=== PATIENT | female | born 1985 | race Caucasian/White ===

== ENCOUNTER 2019-01-25 10:06 | Day surgery (SDC) | payer OTHER ==
[2019-01-22 16:21] VITALS: BMI 30.2
[~2019-01-25 10:06] MED LIST: Dexamethasone 20 MG/5 ML VIAL ONE; Glycopyrrolate 0.2 MG/ML 5 ML SYRINGE ONE; Ondansetron PF 4 MG/2 ML Vial ONE; PHENYLEPHRINE-NS 100 MCG/ML 10 ML SYRINGE ONE; PROPOFOL 200 MG/20 ML VIAL ONE; Rocuronium Bromide 10 MG/ML (10ML VIAL) ONE
[2019-01-25] MEDS ORDERED: Famotidine/PF 20 mg/2ml Vial ONE (10:38)
[2019-01-25] MEDS ORDERED: Gabapentin 300 MG CAP ONE (10:38)
[2019-01-25] MEDS ORDERED: CeleCOXIB 100 MG CAP ONE (10:38)
[2019-01-25] MEDS ORDERED: Bupivacaine/Epinephrine 0.5% 10 ML VIAL ONE (12:36)
[2019-01-25] MEDS ORDERED: Fentanyl 100 MCG/2 ML VIAL ONE ×3 (13:00→15:44)
[2019-01-25] MEDS ORDERED: Acetaminophen 325 MG TAB PO PRN (13:19)
[2019-01-25] MEDS ORDERED: diphenhydrAMINE 25 MG CAP PO PRN (13:19)
[2019-01-25] MEDS ORDERED: Promethazine HCl 25 MG/ML VIAL IM PRN (13:19)
[2019-01-25] MEDS ORDERED: Zolpidem Tartrate 5 MG TAB PO PRN (13:19)
[2019-01-25] MEDS ORDERED: Simethicone Chewable 80 MG TAB PO PRN (13:19)
[2019-01-25] MEDS ORDERED: Bisacodyl 10 MG SUPP PR PRN (13:19)
[2019-01-25] MEDS ORDERED: Ondansetron PF 4 MG/2 ML Vial IVP PRN (13:19)
[2019-01-25] MEDS ORDERED: HYDROcodone/Acetaminophen 5/325 mg Tablet PO PRN (13:19)
[2019-01-25] MEDS ORDERED: Fentanyl 100 MCG/2 ML VIAL SLOW IVP PRN (13:19)
[2019-01-25] MEDS: Lactated Ringer's 1,000 ML IV SCH (13:30)
[2019-01-25] MEDS: Ketorolac Tromethamine 30 MG/ML VIAL IVP SCH (17:23)
[2019-01-25] MEDS: HYDROcodone/Acetaminophen 5/325 mg Tablet PO PRN (21:17)
[2019-01-25] MEDS: Docusate Calcium (SURFAK) 240 MG CAP PO SCH (21:17)
--- NOTE | 2019-01-25 21:28 | OP ---
DATE OF PROCEDURE: 01/25/2019 PREOPERATIVE DIAGNOSES: 1. Pelvic pain. 2. Cervical dysplasia. POSTOPERATIVE DIAGNOSES: 1. Pelvic pain. 2. Cervical dysplasia. PROCEDURE: Robotic assisted total laparoscopic hysterectomy, right salpingectomy. ANESTHESIA: General endotracheal attending. [place]ARD[place] SURGEON: ISMAEL Kc ESTIMATED BLOOD LOSS: 50 mL. IVF: 1200 mL crystalloid. URINE OUTPUT: 300 mL clear urine. PATHOLOGY: Uterus, cervix, right fallopian tube. COMPLICATIONS: None. DRAINS: Kohli catheter. FINDINGS: Uterus sounded to 10 cm, was globally enlarged. There was a normal appearing right ovary and fallopian tube with the right ovary had a corpus luteum. The left ovary and fallopian tube were surgically absent. During the case, the ureters were visualized bilaterally vermiculating and excellent hemostasis was noted at the end of the case. There was no bladder injury upon back filling of the bladder. OPERATIVE TECHNIQUE: The patient was taken to the operating room, where general anesthesia was obtained without difficulty. The patient was prepped and draped in a sterile fashion in the dorsal lithotomy position. A Kohli catheter was placed in the bladder. A speculum was placed in the vagina. The anterior lip of the cervix was grasped with a single-tooth tenaculum. The uterus then sounded to 10 cm and was progressively dilated with Chris dilators. The VINCE manipulator was assembled with a 10 cm tip and a 4 cm colpotomizer ring. The manipulator tip was inserted into the uterine fundus. The balloon was inflated. Instruments removed out of the vagina and colpotomizer ring was advanced, fit snugly around the cervix and Occluder balloon was inflated. Legs were placed in low lithotomy. Attention was turned to the abdomen. A 12 mm skin incision was made in the umbilicus and the Veress needle was passed into the abdomen noting an opening pressure of 3 mmHg and pneumoperitoneum was obtained without difficulty. The Veress needle was removed and a 12 mm trocar was passed into the abdomen and confirmed placement with robotic camera. Steep Trendelenburg was obtained. A right and left lower quadrant 8 mm robotic trocars were placed under direct visualization after infiltrating with 0.5% Marcaine with epinephrine. A right upper quadrant visitor services assistant 11 mm port was placed under direct visualization after infiltrating with anesthetic and making a skin incision. The robot was then docked. The right robotic arm contained monopolar scissors. Left robotic arm contained a fenestrated bipolar. The surgeon console then took control. The right fallopian tube was grasped and elevated at the fimbria and the mesosalpinx was sequentially clamped, cauterized, and transected. There was a Filshie clip from the patient's previous tube that was also removed along with the fallopian tube. The fallopian tube was then transected across at the uterine cornua and the fallopian tube was removed out of the abdomen. The utero-ovarian on the right was cauterized with the fenestrator and incised with the scissors and the round ligament was cauterized in the midportion and incised with the scissors. The posterior leaf of the broad ligament was incised down to the level of the uterosacral. The ureter was noted in the sidewall and the posterior leaf was dropped down adequately to visualize the ureter in the pelvic sidewall and hemostasis was achieved with short bursts of energy to cauterize with the scissors. The anterior leaf of the broad ligament was incised down to the level of the bladder flap and the vessels were skeletonized on the right side. The bladder flap was then incised over the pubocervical fascia and the adventitial fibers were dissected down using the scissors as well as blunt dissection with the back end of the scissors. The attention was turned to the left side where the ovary and fallopian tube were surgically absent. The round ligament was cauterized in the midportion with the fenestrator and incised with the scissors. The posterior leaf of the broad ligament was incised down to the level of the uterosacral and the ureter was noted in the pelvic sidewall and the posterior leaf was bluntly dissected off the anterior leaf in order to visualize the ureter in the retroperitoneum. The anterior leaf of the broad ligament was incised down to the level of the incision from the contralateral side. The vessels were skeletonized on the left side with the scissors. The bladder flap was further developed by scoring on the pubis cervical fascia and dissecting the adventitia down below the level of the colpotomizer ring. Hemostasis was achieved with the with the scissors of the bladder pillars. The vessels were cauterized bilaterally. Colpotomy was performed at the right uterine pedicle after the pedicle had been incised to drop away laterally. The cardinal ligament was incised and the blue colpotomizer ring was identified. The colpotomy was carried all the way around circumferentially incising with the scissors until it had been completed, and the uterus was placed back into the vagina. The cuff was irrigated. The scissors were traded out for the needle van driver and hemostasis was achieved of the cuff with the fenestrator. The vaginal cuff was closed with a 2-0 barbed STRATAFIX suture in a running fashion incorporating vaginal mucosa and posterior peritoneum in each bite. Once a single-layer closure had been performed, it was run back for several sutures and then the uterosacrals were grabbed and the stitch was thrown through each uterosacral and then through the rectovaginal peritoneum performing a Spears's culdoplasty. The needle was then cut and removed out of the abdomen. The pelvis was copiously irrigated and suctioned. Hemostasis was noted to be excellent. The bladder was backfilled, and no bladder injury was observed. Bertha powder was placed over the vaginal cuff and pedicles and all instruments removed out of the abdomen. The robot was undocked. Pneumoperitoneum was released. The fascia of the camera port was closed with a 0 Vicryl in a [id number] fashion. The skin was closed with 4-0 Monocryl in a subcuticular fashion. Dermabond was applied. The vaginal cuff was checked vaginally and noted to be hemostatic with excellent closure. All instruments removed out of the vagina. The patient tolerated the procedure well. Sponge, lap, needle counts correct x2. The patient was taken to recovery room in stable condition. Job ID: [id number]
[2019-01-26] MEDS: Ketorolac Tromethamine 30 MG/ML VIAL IVP SCH (00:42)
[2019-01-26] MEDS: Lactated Ringer's 1,000 ML IV SCH (02:50)
[2019-01-26] MEDS: HYDROcodone/Acetaminophen 5/325 mg Tablet PO PRN (04:37)
[2019-01-26 05:14] LABS: Hemoglobin 12.7 g/dL (12.0-16.0); Mean Corpuscular HGB CONC 34.5 g/dL (32.0-36.0); Mean Corpuscular Hemoglobin 33.1 pg (27.0-31.0); Mean Corpuscular Volume 95.9 fL (78.0-98.0); Mean Platelet Volume 9.1 fL (7.4-10.4); Platelet Count 204 thou/uL (130-400); RBC Distribution Width 11.6 % (11.5-14.5); Red Blood Cell (RBC) Count 3.82 mill/uL (4.20-5.40); White Blood Cell (WBC) Count 14.3 thou/uL (4.8-10.8)
[2019-01-26] MEDS ORDERED: Ibuprofen 800 MG TAB PO SCH (06:00)
[2019-01-26 08:15] VITALS: BP 104/62; TEMP 97.7
[2019-01-26] MEDS: Docusate Calcium (SURFAK) 240 MG CAP PO SCH (08:23)
--- NOTE | 2019-01-26 08:44 | PDOC.EVN ---
Event Note - Event Note Event Note: POD1 S: No complaints, pain controlled. Delores diet, ambulating and voiding without difficulty. O: VSSAF NAD unlabored breathing soft/ND/appttp/inc c/d/i No e/c/c Hgb 12.7 A) POD1 s/p RATLH unilateral salpingectomy VSSAF Hgb wnl postop met all milestones Path pending DC home FU 2 wk, restrictions given.
[2019-01-31] MEDS ORDERED: Ibuprofen 800 MG TAB PO SCH (06:00)
== END 2019-01-26 10:00 | disposition home or self-care (01) ==
LOC: SDC 10:06 → 3SE 17:17 → UNDOADMIN 17:17 → UNDODISIN 01-26 10:00 → SDC 01-26 10:00
PROVIDERS: ATTEND Student in an Organized Health Care Education/Training Program
DX: N87.9 Dysplasia of cervix uteri, unspecified (principal); N80.0 Endometriosis of uterus; N72 Inflammatory disease of cervix uteri; F17.210 Nicotine dependence, cigarettes, uncomplicated; F32.9 Major depressive disorder, single episode, unspecified; F90.9 Attention-deficit hyperactivity disorder, unspecified type; Z79.899 Other long term (current) drug therapy; Z91.040 Latex allergy status
CPT/HCPCS: 36415; 85027; 86850; 86900; 86901; 88307; J0690; J1100; J1885; J2405; J2704; J3010; J3490; S0028

== ENCOUNTER 2019-01-30 20:25 | Observation (INO) | payer OTHER ==
[~2019-01-30 20:25] MED LIST changes: -Dexamethasone 20 MG/5 ML VIAL ONE; -Glycopyrrolate 0.2 MG/ML 5 ML SYRINGE ONE; +Iopamidol-370 76% 500 ML 1 ML ONE; -Ondansetron PF 4 MG/2 ML Vial ONE; -PHENYLEPHRINE-NS 100 MCG/ML 10 ML SYRINGE ONE; -PROPOFOL 200 MG/20 ML VIAL ONE; -Rocuronium Bromide 10 MG/ML (10ML VIAL) ONE
[2019-01-30] MEDS ORDERED: cefTRIAXone\\ROCEPHIN 2 GM VIAL ONE (20:53)
[2019-01-30] MEDS ORDERED: Morphine 4 MG/ML VIAL ONE (20:53)
[2019-01-30 21:18] LABS: Hemoglobin 12.9 g/dL (12.0-16.0); Mean Corpuscular HGB CONC 34.3 g/dL (32.0-36.0); Mean Corpuscular Hemoglobin 33.4 pg (27.0-31.0); Mean Corpuscular Volume 97.3 fL (78.0-98.0); RBC Distribution Width 11.5 % (11.5-14.5); Red Blood Cell (RBC) Count 3.88 mill/uL (4.20-5.40)
[2019-01-30] MEDS ORDERED: Piperacillin/Tazobactam 4.5 GM VIAL ONE (21:19)
[2019-01-30 21:24] LABS: Band 6 % (5-11); Eosinophils 4 % (0-10); Lymphocytes 12 % (21-51); MDiff Complete? YES; Mean Platelet Volume 9.7 fL (7.4-10.4); Monocytes 7 % (0-10); Neutrophil 71 % (42-75); Platelet Count 233 thou/uL (130-400)
[2019-01-30 21:25] LABS: ALT (SGPT) 29 U/L (8-55); AST (SGOT) 24 U/L (5-34); Albumin 3.9 g/dL (3.5-5.0); Alkaline Phosphatase 82 U/L (40-110); Anion Gap 12 mmol/L (10-20); BUN (Urea Nitrogen) 7 mg/dL (7.0-18.7); Bilirubin, Total 0.4 mg/dL (0.2-1.2); Calc. Creatinine Clearance 0 mL/min (70-130); Calcium 9.2 mg/dL (7.8-10.44); Carbon Dioxide 26 mmol/L (22-29); Chloride 101 mmol/L (98-107); Estimated GFR-MDRD Greater than 90; Globulin 3.3 g/dL (2.4-3.5); Glucose 93 mg/dL (70-105); Lipase Less than 4 U/L (8-78); Magnesium 1.8 mg/dL (1.6-2.6); Potassium 4.2 mmol/L (3.5-5.1); Protein, Total 7.2 g/dL (6.0-8.3); Sodium 135 mmol/L (136-145)
--- NOTE | 2019-01-30 21:32 | RAD ---
XR Chest 1 View Portable History: Sepsis. Fever. Comparison: None. Findings: Lungs are clear. No pneumothorax. No effusion. No acute osseous abnormality. Impression: No acute intrathoracic abnormality.
--- NOTE | 2019-01-30 21:45 | CT ---
CT Abdomen Pelvis W Con History: Abdominal pain Comparison: None. Findings: Mild atelectasis in the lung bases. No pericardial effusion. Evidence of recent hysterectomy with postoperative changes in the hysterectomy bed. Small volume free intraperitoneal gas. Fat-containing periumbilical hernia as well as a fat-containing umbilical hernia. No definite drainable fluid collection is appreciated. No significant hematoma. No dilated loops of large or small bowel. Appendix measures 6 mm without periappendiceal inflammation . The spleen, pancreas, liver, gallbladder are unremarkable. No dilated loops of large or small bowel. No retroperitoneal periaortic adenopathy. There is a lumbosacral transitional vertebra. No acute osse ous abnormality. No hydronephrosis. Impression: 1. Expected postoperative findings without complication. 2. Small small fat-containing umbilical and periumbilical hernias.
[2019-01-30 22:14] LABS: Bilirubin Negative (Negative); Blood, Urine Negative (Negative); Clarity Clear (Clear); Glucose, Urine (Dipstick) Normal (Negative); Leukocyte Negative Leu/uL (Negative); Nitrite Negative (Negative); Protein, Urine (Dipstick) Negative (Neg-Trace); Urobilinogen Normal mg/dL (Less than 2)
[2019-01-30] MEDS ORDERED: HYDROmorphone 0.5 MG/0.5 ML SYRINGE ONE (22:33)
--- NOTE | 2019-01-31 00:10 | PDOC.HHP ---
Hospitalist HPI - History of Present Illness post-op fever & abdominal pain History of Present Illness: 33YO who presented to the ED per the recs of her PCP due to fever up to 101F at home w/ associated diarrhea and abdominal pain. Patient is post-op day # 5 s/p a robotic TIARA and R salpingectomy who reports having progressively worsening B/L lower abdominal pain since Friday. Reports that the pain is intermittent & crampy in nature lasting only a few seconds at a time but has been occurring more frequently for the last 3-4 days. States the pain is ~8/10 when it occurs. Reports some associated fever/chills that began earlier today around ~ 13:00 and recorded a temp of 101F at home around 15:30. Has also had some associated nausea and diarrhea but no vomiting. Reports 3 episodes of liquid, foul-smelling stool with every BM. Reported severe pain in her bottom with last BM that was different from her abdominal pain. Denies any melena, hematochezia, dysuria, hematuria, incision sight redness or drainage or vaginal d/c or pain. Does reports some light vaginal spotting earlier today but no continued bleeding. Also reports vaginal itching. Has a h/o chronic pelvic pain which is why she had the surgery and reports that this pain is different from that. ED Course: s/p IV zosyn, dilaudid and morphine Hospitalist ROS - Review of Systems Constitutional: reports: fever, chills, malaise Eyes: denies: pain, vision change ENT: denies: ear pain, nose congestion, throat pain Respiratory: reports: pleuritic pain. denies: cough, shortness of breath, hemoptysis Cardiovascular: denies: chest pain, palpitations Gastrointestinal: reports: nausea, abdominal pain, diarrhea. denies: vomiting, constipation, melena, hematochezia Genitourinary: reports: other (vaginal itching but no d/c; minimal spotting). 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 Gastrointestinal: reports: no pertinent history Heme/Onc: reports: no pertinent history Hepatobiliary: reports: no pertinent history Psych: reports: Anxiety, Bipolar Musculoskeletal: reports: no pertinent history Rheumatologic: reports: no pertinent history Infectious Disease: reports: no pertinent history ENT: reports: no pertinent history Renal/: reports: no pertinent history Endocrine: reports: no pertinent history Dermatology: reports: no pertinent history - Past Surgical History Past Surgical History: reports: Hysterectomy (w/ L salpingectomy), Tubal Ligation, Other (left oophrectomy & cystectomy, LEEP) - Family History Family History: reports: diabetes mellitus, hypertension - Social History Smoking Status: Current every day smoker Alcohol: reports: Occassional Drugs: reports: none Living Situation: With Family Activity level: independent ambulation - Exam General Appearance: awake alert General - other findings: in moderate distress 2/2 pain Eye: anicteric sclera ENT: normocephalic atraumatic, moist mucosa Neck: supple Heart: RRR, no murmur Respiratory: CTAB, no wheezes, no rales, no ronchi, normal chest expansion Gastrointestinal: soft, non-distended, normal bowel sounds, no guarding, no rigidity, tender to palpation (all along lower abdomen, RLQ>LLQ) Gastrointestinal - other findings: exam: speculum exam unremarkable w/ no abnormal d/c dehiscence Skin: normal turgor, no lesions Skin - other findings: diffuse erythema/irritation all across perineum Neurological: cranial nerve grossly intact, no focal deficits Psychiatric: normal affect, A&O x 3 Hospitalist Results - Labs Result Diagrams: 01/30/19 20:53 01/30/19 20:53 Lab results: WBC 15.0 thou/uL (4.8-10.8) H 01/30/19 20:53 Hgb 12.9 g/dL (12.0-16.0) 01/30/19 20:53 Hct 37.7 % (36.0-47.0) 01/30/19 20:53 MCV 97.3 fL (78.0-98.0) 01/30/19 20:53 Plt Count 233 thou/uL (130-400) 01/30/19 20:53 Band Neuts % (Manual) 6 % (5-11) 01/30/19 20:53 Sodium 135 mmol/L (136-145) L 01/30/19 20:53 Potassium 4.2 mmol/L (3.5-5.1) 01/30/19 20:53 Chloride 101 mmol/L (98-107) 01/30/19 20:53 Carbon Dioxide 26 mmol/L (22-29) 01/30/19 20:53 BUN 7 mg/dL (7.0-18.7) 01/30/19 20:53 Creatinine 0.71 mg/dL (0.6-1.1) 01/30/19 20:53 Glucose 93 mg/dL (70-105) 01/30/19 20:53 Lactic Acid 0.9 mmol/L (0.5-2.2) 01/30/19 20:53 Calcium 9.2 mg/dL (7.8-10.44) 01/30/19 20:53 Total Bilirubin 0.4 mg/dL (0.2-1.2) 01/30/19 20:53 AST 24 U/L (5-34) 01/30/19 20:53 ALT 29 U/L (8-55) 01/30/19 20:53 Alkaline Phosphatase 82 U/L (40-110) 01/30/19 20:53 Serum Total Protein 7.2 g/dL (6.0-8.3) 01/30/19 20:53 Albumin 3.9 g/dL (3.5-5.0) 01/30/19 20:53 Lipase Less than 4 U/L (8-78) L 01/30/19 20:53 Urine Ketones Negative mg/dL (Negative) 01/30/19 22:01 Urine Blood Negative (Negative) 01/30/19 22:01 Urine Nitrite Negative (Negative) 01/30/19 22:01 Ur Leukocyte Esterase Negative Irma/uL (Negative) 01/30/19 22:01 - Radiology Interpretation Chest x-ray Status: report reviewed by me Additional Comment: NAF CT scan - abdomen Status: image reviewed by me, report reviewed by me (expected post-op findings w /o complication; small fat-containing umbilical & john-umbilical hernias) Hospitalist H&P A/P - Problem (1) Abdominal pain Code(s): R10.9 - UNSPECIFIED ABDOMINAL PAIN Status: Acute Qualifiers: Abdominal location: lower abdomen, unspecified Qualified Code(s): R10.30 - Lower abdominal pain, unspecified (2) Postoperative fever Code(s): R50.82 - POSTPROCEDURAL FEVER Status: Acute (3) Diarrhea Code(s): R19.7 - DIARRHEA, UNSPECIFIED Status: Acute (4) Tobacco use Code(s): Z72.0 - TOBACCO USE Status: Chronic (5) Bipolar disorder Code(s): F31.9 - BIPOLAR DISORDER, UNSPECIFIED Status: Chronic - Plan Plan: 33YO who is post-op day #5 s/p robotic hysterectomy & R salpingectomy who presented to the ED for evaluation for progressively worsening lower abdominal pain w/ associated fever/chills, nausea, and diarrhea. Post-op abdominal pain & fever: - DDx includes post-operative abscess vs. infectious colitis/gastroenteritis vs. pelvic infection. CT done in ED did not comment on any drainable fluid collection c/w abscess formation but patient was in significant pain at time of exam. Could just be 2/2 infectious colitis or gastroenteritis as well though given her diarrhea. Will consider stool cultures if it persists as patient is at risk for infections like C/ diff given recent abx & hospitalization for recent surgery. Speculum exam was not remarkable for any s/s of pelvic infection making this highly unlikely. Did reveal perineal contact dermatitis however which will be addressed below. - WBC elevated at 15 but normal CMP, lipase, UA, & lactate. VS notable for tachycardia & tachypnea on presentation as well making her SIRS positive. Afebrile on presentation but was reportedly febrile up to 101F at home & reports having taken tylenol just prior to arrival. Blood & urine cultures pending. - s/p 4.5g IV zosyn in the ED. Will continue Q6H on the floor and continue PRN zofran & [place] & morphine for nausea & pain control. - Continue mIVFs w/ NS @ 100mL/hr. - Repeat CBC in the AM. Perineal contact dermatitis vs. intertrigo: - Due to the fact that the rash could possibly be fungal given only reported symptom is itching, will try topical nystatin powder & assess for improvement. Bipolar disorder: - Will continue home abilify. Anxiety: - Will continue PRN Xanax if needed. tobacco use: - Nicotine patch ordered. Will encourage cessation. Dispo: Will admit to [facility] WE[facility] floor for observation and continued IV abx pending clinical course. Addendum - Attending - Attending Attestation Date/Time: 01/31/192 I personally evaluated the patient and discussed the management with Dr. Dale. I agree with the History, Examination, Assessment and Plan documented above.
[2019-01-31] MEDS ORDERED: Acetaminophen 500 MG TAB ONE (00:46)
[2019-01-31] MEDS ORDERED: Aripiprazole 10 MG TAB PO SCH ×2 (01:00→21:00)
[2019-01-31] MEDS ORDERED: Morphine 2 MG/ML SYRINGE SLOW IVP PRN (01:39)
[2019-01-31] MEDS ORDERED: Ondansetron ODT 4 MG TAB PO PRN (01:39)
[2019-01-31] MEDS ORDERED: Calcium Carbonate 500 MG ChewTAB PO PRN (01:39)
[2019-01-31] MEDS ORDERED: Ondansetron PF 4 MG/2 ML Vial IVP PRN (01:39)
[2019-01-31] MEDS: Sodium Chloride 0.9% 1,000 ML IV SCH ×2 (02:06→13:53)
[2019-01-31] MEDS: Nicotine 14 MG PATCH TD SCH (02:07)
[2019-01-31] MEDS: HYDROcodone/Acetaminophen 5/325 mg Tablet PO PRN ×4 (02:16→19:45)
[2019-01-31] MEDS: Piperacillin/Tazobactam 4.5 GM in Sodium Chloride 0.9% 100 ML IVPB SCH ×4 (03:44→21:38)
[2019-01-31 05:54] LABS: Band 2 % (5-11); Eosinophils 5 % (0-10); Hemoglobin 11.6 g/dL (12.0-16.0); Lymphocytes 13 % (21-51); MDiff Complete? YES; Mean Corpuscular HGB CONC 33.7 g/dL (32.0-36.0); Mean Corpuscular Hemoglobin 33.1 pg (27.0-31.0); Mean Corpuscular Volume 98.1 fL (78.0-98.0); Monocytes 8 % (0-10); Neutrophil 72 % (42-75); Platelet Count 213 thou/uL (130-400); Platelet Morphology Comment Appears Adequate; RBC Distribution Width 11.6 % (11.5-14.5); White Blood Cell (WBC) Count 17.9 thou/uL (4.8-10.8)
--- NOTE | 2019-01-31 07:40 | PDOC.FM ---
- Subjective Subjective: Patient remained afebrile overnight and reports she has been tolerating PO since she arrived to the floor. Reports pain is still present but is much improved. No diarrhea or recurrent vaginal bleeding since arrival to floor as well. - Objective MAR Reviewed: Yes Vital Signs & Weight: Vital Signs (12 hours) Temp Pulse Resp BP Pulse Ox 01/31/19 03:40 98.6 F 93 16 93/49 L 01/31/19 01:30 98.8 F 99 18 107/64 96 Weight Admit Weight 179.4 g Weight 81.193 kg I&O: 01/30/19 01/31/19 02/01/19 06:59 06:59 06:59 Intake Total 436 Balance 436 Result Diagrams: 01/31/19 04:23 01/30/19 20:53 Phys Exam - Physical Examination Constitutional: NAD HEENT: moist MMs Neck: supple, full ROM Respiratory: no wheezing, no rales, no rhonchi, clear to auscultation bilateral Cardiovascular: RRR, no significant murmur Gastrointestinal: soft, no distention, positive bowel sounds mild diffuse TTP w/ no rebound or guarding noted Neurological: non-focal, moves all 4 limbs Psychiatric: normal affect, A&O x 3 Dx/Plan (1) Abdominal pain Code(s): R10.9 - UNSPECIFIED ABDOMINAL PAIN Status: Acute Qualifiers: Abdominal location: lower abdomen, unspecified Qualified Code(s): R10.30 - Lower abdominal pain, unspecified (2) Postoperative fever Code(s): R50.82 - POSTPROCEDURAL FEVER Status: Acute (3) Diarrhea Code(s): R19.7 - DIARRHEA, UNSPECIFIED Status: Acute (4) Tobacco use Code(s): Z72.0 - TOBACCO USE Status: Chronic (5) Bipolar disorder Code(s): F31.9 - BIPOLAR DISORDER, UNSPECIFIED Status: Chronic - Plan Plan: 33YO who is post-op day #6 s/p robotic hysterectomy & R salpingectomy who presented to the ED for evaluation for progressively worsening lower abdominal pain w/ associated fever/chills, nausea, and diarrhea. Post-op abdominal pain & fever: - DDx still includes post-operative abscess vs. infectious colitis/ gastroenteritis vs. pelvic infection. - Patient clinically much improved on exam & is s/p IV zosyn & NS @ 100mL/hr overnight. However, WBC slightly elevated from 15 to 17.9 this AM. Blood & urine cultures still pending. - Will continue IV zosyn Q6H as well as PRN zofran & [place] & morphine for nausea & pain control. Perineal contact dermatitis vs. intertrigo: - Will continue topical nystatin ointment TID & monitor for improvement. Bipolar disorder: - Will continue home abilify. Anxiety: - Will continue PRN Xanax if needed. tobacco use: - Nicotine patch placed. Will encourage cessation. 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 Addendum - Attending - Attending Attestation Date/Time: 01/31/19 0750 I personally evaluated the patient and discussed the management with Dr. Dale. I agree with the History, Examination, Assessment and Plan documented above.
[2019-01-31] MEDS: Nystatin Cream 30 GM TUBE TOP SCH ×3 (09:07→19:47)
[2019-01-31] MEDS: Enoxaparin Sodium 40 MG/0.4 ML SYRINGE SC SCH (09:07)
[2019-01-31] MEDS: Ibuprofen 600 MG TAB PO PRN (13:52)
[2019-02-01] MEDS: Sodium Chloride 0.9% 1,000 ML IV SCH ×2 (00:57→10:16)
[2019-02-01] MEDS: HYDROcodone/Acetaminophen 5/325 mg Tablet PO PRN ×3 (02:21→18:30)
[2019-02-01] MEDS: Nicotine 14 MG PATCH TD SCH (02:23)
[2019-02-01] MEDS: Piperacillin/Tazobactam 4.5 GM in Sodium Chloride 0.9% 100 ML IVPB SCH ×3 (03:43→16:25)
[2019-02-01 04:31] LABS: #Eosinphils 0.6 thou/uL (0.0-0.7); #Lymphocytes 1.6 thou/uL (1.20-3.40); #Monocytes 0.8 thou/uL (0.11-0.59); #Neutrophils 6.3 thou/uL (1.40-6.50); %Basophils 0.2 % (0.0-1.0); %Eosinophils 6.7 % (0.0-10.0); %Lymphocytes 17.4 % (21.0-51.0); %Monocytes 8.9 % (0.0-10.0); %Neutrophils 66.8 % (42.0-75.0); Hemoglobin 10.4 g/dL (12.0-16.0); Mean Corpuscular HGB CONC 34.1 g/dL (32.0-36.0); Mean Corpuscular Hemoglobin 33.6 pg (27.0-31.0); Mean Corpuscular Volume 98.5 fL (78.0-98.0); Mean Platelet Volume 9.6 fL (7.4-10.4); Platelet Count 199 thou/uL (130-400); RBC Distribution Width 11.4 % (11.5-14.5); Red Blood Cell (RBC) Count 3.09 mill/uL (4.20-5.40); White Blood Cell (WBC) Count 9.4 thou/uL (4.8-10.8)
[2019-02-01] MEDS: Enoxaparin Sodium 40 MG/0.4 ML SYRINGE SC SCH (07:50)
[2019-02-01] MEDS: Ibuprofen 600 MG TAB PO PRN (08:53)
[2019-02-01] MEDS: Nystatin Cream 30 GM TUBE TOP SCH ×2 (10:13→16:30)
[2019-02-01] MEDS ORDERED: ALPRAZolam 0.25 MG TAB PO PRN (12:50)
[2019-02-01 15:06] VITALS: BMI 29.7
[2019-02-01] MEDS ORDERED: Sodium Chloride 0.9% 10 ML ONE (16:31)
--- NOTE | 2019-02-01 17:30 | PDOC.EVN ---
Event Note - Event Note Event Note: HD3 S: Pain has improved, has not taken any pain meds since this am. Nl BM, nl urination. Delores reg diet, no chills. O: Tmax 100.6 at 1530 yesterday, otherwise VSSAF NAD unlabored respirations soft/abhijit ttp/ND/Inc c/d/i No e/c/c, neg [facility] Lab: Hgb 10.4, WBC[address] CX[address] A/P nl postop changes, small periumbilical fat containing hernia A) POD7 s/p RATLH readmitted with postop fever of unknown origin. P) Now afebrile >24hr, s/p zosyn, cultures thus far are negative. Patient's symptoms have resolved. Dispo for DC home with ER warnings. Since unknown origin of fever and low grade temps will not DC with antibiotic course.
[2019-02-01 17:55] VITALS: BP 109/66; TEMP 98.8
== END 2019-02-01 19:02 | disposition home or self-care (01) ==
LOC: ERS 20:25 → 3SW 01-31 01:23 → INTOOBSV 01-31 01:40 → 3SW 01-31 01:40
PROVIDERS: ADMIT Obstetrics & Gynecology; ATTEND Obstetrics & Gynecology
DX: R50.82 Postprocedural fever (principal); R10.30 Lower abdominal pain, unspecified; F41.9 Anxiety disorder, unspecified; F31.9 Bipolar disorder, unspecified; F17.200 Nicotine dependence, unspecified, uncomplicated; R19.7 Diarrhea, unspecified; K42.9 Umbilical hernia without obstruction or gangrene; Z79.899 Other long term (current) drug therapy; Z91.040 Latex allergy status
CPT/HCPCS: 36415; 71045; 74177; 80053; 81003; 83605; 83690; 83735; 85007; 85025; 85027; 87040; 87086; 87804; 93005; 96361; 96365; 96366; 96372; 96375; 96376; A4353; G0378; J0696; J1170; J1650; J2270; J2405; J2543; J3490; Q9967

== ENCOUNTER 2019-05-22 13:36 | Emergency (ER) | payer OTHER ==
[2019-05-22] MEDS ORDERED: Acetaminophen 325 MG TAB ONE (14:07)
--- NOTE | 2019-05-22 14:20 | RAD ---
EXAM: Chest PA and lateral: HISTORY: Cough COMPARISON: None FINDINGS: Heart size:Within normal limits. Lungs:Clear of acute process. No confluent pneumonia, overt edema, pleural effusion, or other acute process. IMPRESSION: No significant acute intrathoracic disease.
== END 2019-05-22 14:38 | disposition home or self-care (01) ==
LOC: ERS 13:36
DX: J11.1 Influenza due to unidentified influenza virus with other respiratory manifestations (principal); F41.9 Anxiety disorder, unspecified; F31.9 Bipolar disorder, unspecified; F17.210 Nicotine dependence, cigarettes, uncomplicated; Z79.899 Other long term (current) drug therapy
CPT/HCPCS: 71046; 87804

== ENCOUNTER 2020-12-06 17:23 | Emergency (ER) | payer OTHER ==
[2020-12-06 18:24] LABS: #Basophils 0.1 thou/uL (0.0-0.2); #Eosinphils 0.1 thou/uL (0.0-0.7); #Lymphocytes 3.4 thou/uL (1.20-3.40); #Monocytes 0.7 thou/uL (0.11-0.59); #Neutrophils 7.7 thou/uL (1.40-6.50); %Basophils 0.4 % (0.0-1.0); %Eosinophils 0.9 % (0.0-10.0); %Lymphocytes 28.1 % (21.0-51.0); %Monocytes 6.1 % (0.0-10.0); %Neutrophils 64.5 % (42.0-75.0); Hemoglobin 14.7 g/dL (12.0-16.0); Mean Corpuscular HGB CONC 33.6 g/dL (32.0-36.0); Mean Corpuscular Hemoglobin 32.8 pg (27.0-31.0); Mean Corpuscular Volume 97.7 fL (78.0-98.0); Mean Platelet Volume 8.9 fL (7.4-10.4); Platelet Count 272 thou/uL (130-400); RBC Distribution Width 11.9 % (11.5-14.5); Red Blood Cell (RBC) Count 4.49 mill/uL (4.20-5.40)
[2020-12-06 18:45] LABS: ALT (SGPT) 52 U/L (8-55); AST (SGOT) 35 U/L (5-34); Albumin 4.6 g/dL (3.5-5.0); Alkaline Phosphatase 87 U/L (40-110); Anion Gap 13 mmol/L (10-20); BUN (Urea Nitrogen) 15 mg/dL (7.0-18.7); Bilirubin, Total 0.5 mg/dL (0.2-1.2); Calc. Creatinine Clearance 0 mL/min (70-130); Calcium 10.1 mg/dL (7.8-10.44); Carbon Dioxide 25 mmol/L (22-29); Chloride 105 mmol/L (98-107); Globulin 3.1 g/dL (2.4-3.5); Glucose 90 mg/dL (70-105); Potassium 4.4 mmol/L (3.5-5.1); Protein, Total 7.7 g/dL (6.0-8.3); Sodium 139 mmol/L (136-145)
[2020-12-06] MEDS ORDERED: Metoclopramide 10 MG/10 ML UDCUP ONE (19:17)
[2020-12-06] MEDS ORDERED: diphenhydrAMINE 50 MG/ML VIAL ONE (19:17)
[2020-12-06] MEDS ORDERED: Metoclopramide HCl 10 MG/2 ML VIAL ONE (19:17)
[2020-12-06 19:21] LABS: Bilirubin Negative (Negative); Blood, Urine Negative (Negative); Clarity Clear (Clear); Glucose, Urine (Dipstick) Normal (Negative); Ketone, Urine Negative (Negative); Leukocyte Negative Leu/uL (Negative); Nitrite Negative (Negative); Protein, Urine (Dipstick) Negative (Neg-Trace); Specific Gravity, Urine 1.022 (1.002-1.036); Urobilinogen Normal mg/dL (Less than 2); pH, Urine 6.5 (5.0-9.0)
== END 2020-12-06 21:03 | disposition home or self-care (01) ==
LOC: ERS 17:23
DX: R00.2 Palpitations (principal); F17.210 Nicotine dependence, cigarettes, uncomplicated
CPT/HCPCS: 36415; 71045; 80053; 81003; 84484; 85025; 93005; 96374; 96375; J1200; J2765